=== PATIENT | male | born 1995 | race African-American/Black ===

== ENCOUNTER 2018-02-25 18:05 | Emergency (ER) | payer OTHER ==
[~2018-02-25] VITALS: Ht 177.8 cm; Wt 82.0 kg
[2018-02-25] MEDS ORDERED: MORPHINE SULFATE 4 MG/ML CPJ (NOT FOR IM USE) IV ONE ×2 (18:30→19:15)
[2018-02-25] MEDS ORDERED: TETANUS, DIPHTHERIA, PERTUSSIS VAC/PF 0.5ML (>7YR OLD) IM ONE (19:15)
[2018-02-25 19:25] LABS: BASOPHILS % 0.3 % (0.0-2.0); EOSINOPHILS % 1.9 % (0.0-5.0); HEMATOCRIT. 39.4 % (42.0-52.0); HEMOGLOBIN. 13.4 g/dL (14.0-18.0); LYMPHOCYTES % 28.5 % (20.0-50.0); MEAN CORPUSCULAR HEMOGLOBIN 29.8 pg (28.0-32.0); MEAN CORPUSCULAR VOLUME 87.4 fL (80.0-94.0); MEAN PLATELET VOLUME 8.7 fl (7.4-10.4); MONOCYTES % 10.2 % (2.0-8.0); NEUTROPHILS % 59.1 % (40.0-76.0); PLATELET 257 x1000/uL (130-400); RED BLOOD CELL COUNT 4.51 mill/uL (4.7-6.1); RED CELL DISTRIBUTION WIDTH 13.3 % (11.6-14.6)
[2018-02-25 19:27] LABS: CHLORIDE 107 mEq/L (98-107)
[2018-02-25 19:28] LABS: INR 1.1; PROTHROMBIN TIME 11.4 sec (9.1-11.1)
[2018-02-25] MEDS ORDERED: IOHEXOL-350 100 ML BOTTLE ONE (22:56)
[2018-02-26 00:12] VITALS: BP 136/81
== END 2018-02-26 00:03 | disposition home or self-care (01) ==
LOC: ER 18:37
DX: S52.691A Other fracture of lower end of right ulna, initial encounter for closed fracture (principal); S52.591A Other fractures of lower end of right radius, initial encounter for closed fracture; Z88.9 Allergy status to unspecified drugs, medicaments and biological substances; W33.01XA Accidental discharge of shotgun, initial encounter; Y93.89 Activity, other specified; Y92.89 Other specified places as the place of occurrence of the external cause; Y99.8 Other external cause status
CPT/HCPCS: 29105; 36415; 73090; 73206; 80053; 85025; 85610; 90471; 90715; 96372; 96374; 99285; J2270; Q9967; 29125; A4565